=== PATIENT | male | born 1990 | race Caucasian/White ===

== ENCOUNTER 2018-07-19 00:43 | Emergency (ER) | payer OTHER ==
[~2018-07-19] VITALS: Ht 175.3 cm; Wt 61.2 kg
[2018-07-19 00:50] VITALS: BP_SYST 132
--- NOTE | 2018-07-19 00:50 | NUR ---
Patient to [facility] for evaluation.
--- NOTE | 2018-07-19 00:55 | NUR ---
Patient to ER via triage for evaluation of head laceration after hitting his head on a shelf. No LOC reported, no neck or back pain. Patient did have 1 episode of vomiting prior to arrival. Patient is awake, alert and oriented in no acute distress, vital signs stable, respirations even and unlabored, skin warm and dry to touch. No active bleeding noted. Awaiting evaluation by ER MD, will continue to observe and assess.
--- NOTE | 2018-07-19 01:20 | NUR ---
ER at bedside examining patient.
--- NOTE | 2018-07-19 01:39 | NUR ---
Patient moved into bed 7 for laceration repair.
[2018-07-19] MEDS ORDERED: DIPH-TET-PERTUS Vaccine 0.5 ML VIAL (ADACEL) IM ONE (01:45)
[2018-07-19] MEDS ORDERED: LIDOCAINE/EPI 1% 1:100000 20 ML VIAL IJ ONE (01:45)
[2018-07-19] MEDS ORDERED: BACITRACIN 1 GM OINT TP ONE (01:45)
--- NOTE | 2018-07-19 02:05 | NUR ---
Dr Marsh at bedside for laceration repair.
[2018-07-19 02:20] VITALS: BP_SYST 120
--- NOTE | 2018-07-19 02:20 | NUR ---
Patient given written and verbal discharge instructions and verbalizes understanding. ER MD discussed with patient the results and treatment provided. Patient in stable condition. ID arm band removed. No RX given. Patient educated on pain management and to follow up with PMD. Pain Scale 0. Opportunity for questions provided and answered. Medication side effect fact sheet provided. Patient left ER in no acute distress, able to ambulate without difficulty with slow, steady gait with friends at his side. No active bleeding noted, no adverse reaction noted to medication.
== END 2018-07-19 02:20 | disposition home or self-care (01) ==
LOC: SED 00:43
DX: S01.01XA Laceration without foreign body of scalp, initial encounter (principal); W22.8XXA Striking against or struck by other objects, initial encounter; Y93.89 Activity, other specified; Y92.59 Other trade areas as the place of occurrence of the external cause; Y99.8 Other external cause status
CPT/HCPCS: 90715; 99283